=== PATIENT | male | born 1990 | race Caucasian/White ===

== ENCOUNTER 2016-10-09 14:50 | Emergency (ER) | payer OTHER ==
[2016-10-09 15:09] VITALS: RESP 18; TEMP 99
[2016-10-09] MEDS ORDERED: HYDROmorphONE/DILAUDID 1 MG/ML SYR IVP ONE (15:41)
[2016-10-09] MEDS ORDERED: KETOROLAC 15 MG/1 ML SDV IVP ONE (15:41)
--- NOTE | 2016-10-09 15:42 | EDPHY ---
H & P Stated Complaint: [place]. Right shoulder pain HPI/ROS: Chief complaint: Right shoulder injury History of present illness: This is a 26-year-old male who presents to the emergency department for a right shoulder injury. Patient was snowboarding at [facility] when he fell onto his shoulder. Since then he has had pain in the shoulder. Specifically around the collar bone. It is worse with movement of the shoulder, better with rest. He denies other associated signs or symptoms including no open wounds, no paresthesias and no abnormal coolness to the right arm. He denies trauma to other parts of the body. There was no loss of consciousness. - Personal History Current Tetanus/Diphtheria Vaccine: Yes Current Tetanus Diphtheria and Acellular Pertussis (TDAP): Yes - Medical/Surgical History Hx Asthma: No Hx Chronic Respiratory Disease: No Hx Diabetes: No Hx Cardiac Disease: No Hx Renal Disease: No Hx Cirrhosis: No Hx Alcoholism: No Hx HIV/AIDS: No Hx Splenectomy or Spleen Trauma: No Other PMH: ADD - Social History Smoking Status: Never smoked - Physical Exam Exam: General Appearance: Alert, nontoxic Eyes: PERRLA Respiratory: Lungs clear to auscultation bilaterally Cardiovascular: Regular rate and rhythm. Radial pulses 2+. Gastrointestinal: Bowel sounds normal abdomen soft, nondistended, nontender Neurological: Alert and oriented x4. Cranial nerves 2-12 grossly intact. Strength and sensation intact and symmetrical including sensation throughout the right arm. Skin: No open wounds noted. Musculoskeletal: Head is normocephalic, atraumatic. The spine is nontender to palpation along its entire length. The chest wall is intact palpation without tenderness, crepitus or subcutaneous air. Tenderness over the right clavicle. He does not want move the right shoulder secondary to pain. The rest of the right upper extremity and other extremities are unremarkable. Constitutional: Initial Vital Signs Temperature (C) 37.2 C 10/09/16 15:02 Heart Rate 82 10/09/16 15:02 Respiratory Rate 18 10/09/16 15:02 Blood Pressure 132/83 H 10/09/16 15:02 O2 Sat (%) 96 10/09/16 15:02 O2 Delivery Mode Room Air Allergies/Adverse Reactions: No Known Allergies Allergy (Unverified 10/09/16 15:09) Home Medications: Medication Instructions Recorded Adderall 10 MG (*) 10/09/16 oxyCODONE/APAP 5/325 [Percocet 1 tab PO Q4 #15 tab 10/09/16 5/325 (*)] Medical Decision Making - Diagnostics Imaging: X-ray series of the right shoulder does reveal a right clavicle fracture Procedures: Procedure: Splint placement. A sling was applied. After application of the splint I returned and re- examined the patient. The splint was adequately immobilizing the joint and distal to the splint the patient's circulation and sensation was intact. ED Course/Re-evaluation: Patient seen under the supervision of my secondary supervising physician Dr. Noemy Mclaughlin. Patient presents to the emergency department for a right shoulder injury. X-ray confirms a clavicle fracture. No evidence of complications such as open wounds or neurovascular compromise of the right arm. By history and physical exam no evidence of trauma to other parts of the body. Patient is placed in a sling. Symptomatically treated with control of pain. He is asked to follow up with orthopedics for continued evaluation and care. Home care is discussed. Strict return precautions are given. Patient voiced understanding and agreement with plan. Differential Diagnosis: Included but not limited to contusion, sprain or strain, bony fracture, joint dislocation - Data Points Medications Given: Discontinued Medications Hydromorphone HCl (Dilaudid) 0.5 mg IVP EDNOW ONE Stop: 10/09/16 15:42 Last Admin: 10/09/16 15:52 Dose: 0.5 mg Ketorolac Tromethamine (Toradol) 15 mg IVP EDNOW ONE Stop: 10/09/16 15:42 Last Admin: 10/09/16 15:53 Dose: 15 mg Departure - Departure Disposition: Home, Routine, Self-Care Clinical Impression: Clavicle fracture Qualifiers: Encounter type: initial encounter Clavicle location: shaft Fracture type: closed Fracture alignment: displaced Laterality: right Qualified Code(s): S42.021A - Displaced fracture of shaft of right clavicle, initial encounter for closed fracture Condition: Good Instructions: Clavicle Fracture (ED) Additional Instructions: Follow-up with an orthopedic doctor this week for continued evaluation and care In regards to pain control see the following: Use ibuprofen 600 mg 3 times a day for the next 2-3 days for pain In addition You have been prescribed Percocet for pain. Percocet contains Tylenol, do not take extra Tylenol/acetaminophen/Apap with it. It is sedating. If symptoms worsen or new symptoms develop return to the emergency department for recheck Referrals: [facility] ,. [Primary Care Provider] - As per Instructions Kelvin Mendoza MD [Medical Doctor] - As per Instructions Prescriptions: oxyCODONE/APAP 5/325 [Percocet 5/325 (*)] 1 tab PO Q4 #15 tab
[2016-10-09 17:08] VITALS: BP 136/72; PULSE 78; O2SAT 94
== END 2016-10-09 17:08 | disposition home or self-care (01) ==
DX: S42.021A Displaced fracture of shaft of right clavicle, initial encounter for closed fracture (principal); V00.311A Fall from snowboard, initial encounter; Y92.39 Other specified sports and athletic area as the place of occurrence of the external cause; Y93.23 Activity, snow (alpine) (downhill) skiing, snowboarding, sledding, tobogganing and snow tubing
CPT/HCPCS: A4565; J1170; J1885